=== PATIENT | female | born 1970 | race Caucasian/White ===

== ENCOUNTER 2023-11-18 09:03 | Emergency (ER) | payer BC, OTHER ==
[2023-11-18] MEDS ORDERED: Acetaminophen 500 MG TAB ONE (09:53)
[2023-11-18] MEDS ORDERED: Ibuprofen 200 MG TAB ONE (09:53)
== END 2023-11-18 09:57 | disposition home or self-care (01) ==
LOC: ERS 09:03
DX: S39.012A Strain of muscle, fascia and tendon of lower back, initial encounter (principal); S16.1XXA Strain of muscle, fascia and tendon at neck level, initial encounter; M51.36 Other intervertebral disc degeneration, lumbar region; V49.88XA Car occupant (driver) (passenger) injured in other specified transport accidents, initial encounter
CPT/HCPCS: 72100